=== PATIENT | female | born 1960 | race African-American/Black ===

== ENCOUNTER → 2017-03-21 07:00 | Outpatient (CLI) | payer MEDICAID | LOC: D.ECHO 07:00 → D.RT 11:00 | DX: R06.02 Shortness of breath (principal) ==

== ENCOUNTER → 2017-04-11 09:00 | Outpatient (CLI) | payer MEDICAID | END | disposition home or self-care (01) | LOC: D.CT 09:00 | DX: J98.4 Other disorders of lung (principal) ==

== ENCOUNTER → 2017-11-08 11:00 | Outpatient (CLI) | payer MEDICAID ==
--- NOTE | ~2017-11-08 | EC ---
PATIENT:ANISHA ZAFAR DATE OF SERVICE: 11/08/17 SEX: F MEDICAL RECORD: [id number] DATE OF : 56 LOCATION:D.RT AGE OF PATIENT: 57 ADMISSION DATE: 11/08/17 REFERRING PHYSICIAN: INTERPRETING PHYSICIAN: DANIEL GREWAL MD ECHOCARDIOGRAM REPORT ECHO CHARGES 4 ECHO COMPLETE Date: 11/08/17 CLINICAL DIAGNOSIS: DYSPNEA ECHOCARDIOGRAPHIC MEASUREMENTS (adult normal given) AC root (d.<3.7cm) 3.2 cm LV Septum d (<1.2 cm> 1.5 cm Valve Excursion 1.9 cm LV Septum (systole) 2.0 cm Left Atria (s.<4.0cm> 4.0 cm LVPW d(<1.2cm) 1.4 cm RV (d.<2.3cm) 2.3 cm LVPW (sytole) 2.0 cm LV diastole(<5.6CM) 4.9 cm MV E-F(>70mm/sec) cm LV systole 2.2 cm LVOT Diameter 2.0 cm MV exc.(>10mm) cm Est.ejection fraction (50-75%) % DOPPLER: LVIT cm/sec A 115 cm/sec E 100 cm/sec LA cm/sec RVSP 35.0 mmHg LVOT 113 cm/sec AOP1/2T m/s Asc. Ao 180 cm/sec RVOT 72.0 cm/sec RA cm/sec PA 101 cm/sec AV Gradient Peak 13.0 mmHg AV Mean 6.6 mmHg AV Area 2.0 cm MV Gradient Peak 6.4 mmHg MV Mean 3.0 mmHg MV Area cm COMMENTS: Inclusion Teacher: Cherelle MARTINOE Filer Repairer: 1 Dr. Grewal TAPE# PACS Pericardial Effusion N DATE OF SERVICE: 11/08/2017 DATE OF SERVICE: 11/08/2017 ECHOCARDIOGRAM FINDINGS: 1. Left ventricular chamber size is within normal limits. Left ventricular systolic function is normal. Overall ejection fraction is estimated at 60%. 2. Left atrium is upper limits of normal at 4.0 cm. Right atrium and right ECHOCARDIOGRAM REPORT [id number] ANISHA ZAFAR ventricular chamber sizes are within normal limits. 3. Valvular structures have normal structure and motion. 4. Doppler interrogation only reveals trace mitral regurgitation, trace tricuspid regurgitation, no other valvular insufficiency or stenosis. Pulmonary systolic pressure is normal estimated at 35 mmHg. 5. No evidence of pericardial effusion or left ventricular thrombus. TRANSINT:[id number] Voice Confirmation ID: [id number] DOCUMENT ID: [id number] DANIEL GREWAL MD at 0924 CC: [id number] DICTATION DATE: 11/08/17 1643 PERSONAL VEHICLE ADVISOR: 11/08/17 1827 DEP CLI 11/08/17 [facility] [address] [id number]
== END | disposition home or self-care (01) ==
LOC: D.RT 11:00
DX: R06.02 Shortness of breath (principal)

== ENCOUNTER → 2018-10-25 08:26 | Outpatient (CLI) | payer MEDICAID | END | disposition home or self-care (01) | LOC: D.RT 08-22 14:00 → D.ECHO 08-24 09:00 → D.RT 08-24 10:00 → D.ECHO 10-15 08:00 | PROVIDERS: ATTEND Internal Medicine Pulmonary Disease | DX: R06.02 Shortness of breath (principal) ==

== ENCOUNTER 2020-06-17 11:36 | Inpatient (IN) | payer MEDICAID ==
[~2020-06-17] VITALS: Ht 157.5 cm; Wt 137.9 kg
[2020-06-17 12:18] VITALS: BP 137/91
[2020-06-17 13:15] LABS: BASOPHILS 0.3 % (0-2); EOSINOPHILS 1.7 % (0-7); HEMATOCRIT 31.5 % (36.0-48.0); HEMOGLOBIN 9.8 g/dL (12-16); IMMATURE GRANULOCYTES 0.5 % (0-5); LYMPHOCYTE ABS# 1.96 10x3/uL (1.18-3.74); LYMPHOCYTES 18.7 % (15-50); MCH 26.7 pg (26.0-34.0); MCHC 31.1 g/dL (31.0-37.0); MCV 85.8 fL (80.0-100.0); MEAN PLATELET VOLUME 10.2 fL (7.4-10.4); MONOCYTES 5.4 % (2-11); NEUTROPHIL ABS# 7.68 10x3/uL (1.56-6.13); NEUTROPHILS 73.4 % (40-80); PLATELET COUNT 360 10x3/uL (130-400); RBC 3.67 10x6/uL (4.00-5.40); RDW 17.2 % (11.5-14.5); WBC 10.5 10x3/uL (4.8-10.8)
[2020-06-17 13:22] LABS: APTT 37.7 SECONDS (22.8-39.4); INR 1.84 (0.85-1.17); PROTIME 19.7 SECONDS (11.6-15.0)
[2020-06-17 13:25] LABS: D-DIMER-QUANTITATIVE 2.26 ug/mLFEU (0.20-0.54)
[2020-06-17 13:26] VITALS: BP 117/62
--- NOTE | 2020-06-17 13:30 | NUR ---
IV SITED IN LEFT FOREARM WITH 22G X 2 ATTEMPTS
[2020-06-17 13:40] LABS: CALC OSMOLALITY 299 mosm/kg (275-300); CALCIUM 8.9 mg/dL (8.5-10.1); CARBON DIOXIDE 24.7 mmol/L (21.0-32.0); CHLORIDE - SERUM 106 mmol/L (98-107); CREATININE - SERUM 3.1 mg/dL (0.6-1.3); GLUCOSE 134 mg/dL (74-106); POTASSIUM - SERUM 4.4 mmol/L (3.5-5.1); SODIUM 140 mmol/L (136-145); UREA NITROGEN 65 mg/dL (7-18); eGFR NON AFRICAN AMERICAN 16 mL/min (90-120)
[2020-06-17 13:58] LABS: ALBUMIN 2.7 g/dL (3.4-5.0); ALKALINE PHOSPHATASE 177 U/L (30-120); ALT (SGPT) 103 U/L (10-68); BILIRUBIN - TOTAL 0.41 mg/dL (0.2-1.3); CKMB 1.2 U/L (0.0-3.6); CREATINE KINASE 50 UL (21-215); PROTEIN - SERUM 7.7 g/dL (6.4-8.2); TROPONIN-I < 0.017 ng/mL (0.000-0.060)
[2020-06-17 14:27] VITALS: BP 115/62
[2020-06-17 15:28] VITALS: BP 111/54
[2020-06-17 16:28] VITALS: BP 116/59
--- NOTE | 2020-06-17 17:40 | NUR ---
REC'D TO ROOM [address]227 AT THIS TIME VIA W/C. AWAKE AND ALERT. RESP EVEN AND UNLABORED WITH NO DISTRESS NOTED. CAN EXPRESS NEEDS AND WANTS. NO C/O NOTED OR VOICED AT THIS TIME. UP AB LARS. ASSESSMENT COMPLETED. C/L IN REACH AT BEDSIDE.
[2020-06-17] MEDS ORDERED: ELIQUIS2.5 MG PO (17:41)
[2020-06-17] MEDS ORDERED: FEXOFENADINE H180 MG PO (17:42)
[2020-06-17] MEDS ORDERED: ZOLOFT50 MG PO (17:42)
[2020-06-17] MEDS ORDERED: PLAVIX75 MG PO (17:44)
[2020-06-17] MEDS ORDERED: GLIPIZIDE5 MG PO (17:45)
[2020-06-17] MEDS ORDERED: METOPROLOL TART50 MG PO (17:45)
[2020-06-17] MEDS ORDERED: PROTONIX40 MG PO (17:46)
[2020-06-17] MEDS ORDERED: LASIX20 MG PO (17:46)
[2020-06-17] MEDS ORDERED: LIPITOR10 MG PO (17:47)
[2020-06-17] MEDS ORDERED: FLUTICASONE PRO16 GM NASAL (17:50)
[2020-06-17] MEDS ORDERED: LANTUS SOL100 UNIT/2 SC (17:52)
[2020-06-17 20:00] VITALS: BP 130/62
--- NOTE | 2020-06-17 23:33 | NUR ---
PT IN BED AT THIS TIME. ALERT AND ORIENTED. WEARING O2 AT 2L VIA NASAL CANULA. ABLE TO MAKE WANTS AND NEEDS KNOWN CLEARLY. PT STATES SHE WEARS A CPAP AT HOME BUT DOES NOT HAVE IT WITH HER. BED IN LOWEST POSITION WITH CALL LIGHT IN REACH.
[2020-06-18] VITALS: BP 143/85
[2020-06-18 04:00] VITALS: BP 134/44
[2020-06-18 06:57] LABS: ALBUMIN 2.6 g/dL (3.4-5.0); ANION GAP 14.5 mmol/L (8-16); BILIRUBIN - TOTAL 0.41 mg/dL (0.2-1.3); CALCIUM 8.8 mg/dL (8.5-10.1); CARBON DIOXIDE 23.7 mmol/L (21.0-32.0); CREATININE - SERUM 2.9 mg/dL (0.6-1.3); POTASSIUM - SERUM 4.2 mmol/L (3.5-5.1); PROTEIN - SERUM 7.7 g/dL (6.4-8.2)
[2020-06-18 07:02] LABS: BASOPHILS 0.1 % (0-2); EOSINOPHILS 2.4 % (0-7); HEMATOCRIT 30.8 % (36.0-48.0); HEMOGLOBIN 9.5 g/dL (12-16); IMMATURE GRANULOCYTES 0.1 % (0-5); LYMPHOCYTE ABS# 2.22 10x3/uL (1.18-3.74); LYMPHOCYTES 22.9 % (15-50); MCH 26.7 pg (26.0-34.0); MCHC 30.8 g/dL (31.0-37.0); MCV 86.5 fL (80.0-100.0); MEAN PLATELET VOLUME 10.3 fL (7.4-10.4); MONOCYTES 5.7 % (2-11); NEUTROPHIL ABS# 6.66 10x3/uL (1.56-6.13); NEUTROPHILS 68.8 % (40-80); PLATELET COUNT 370 10x3/uL (130-400); RBC 3.56 10x6/uL (4.00-5.40); WBC 9.7 10x3/uL (4.8-10.8)
[2020-06-18 07:40] VITALS: BMI 55.7
[2020-06-18 09:34] VITALS: BP 132/52
[2020-06-18 12:06] VITALS: Ht 157.5 cm; Wt 137.9 kg
[2020-06-18 13:44] VITALS: BP 141/61
[2020-06-18 16:23] VITALS: BP 136/43
--- NOTE | 2020-06-18 18:03 | NUR ---
PT REMAINS SOB WHEN AMBULATING TO BATHROOM. BSC BROUGHT TO ROOM AND PT STATES IT WAS NOT HARD TO BREATHE USING IT. UNABLE TO OBTAIN URINE SPECIMEN DUE TO STOOL IN [place] HAT AND THEN WIPES IN [place] HAT. CALL LIGHT IN REACH.
[2020-06-18 20:00] VITALS: BP 138/44
[2020-06-18 20:02] LABS: BILIRUBIN NEGATIVE (NEGATIVE); KETONE NEGATIVE (NEGATIVE); NITRITE NEGATIVE (NEGATIVE); UROBILINOGEN NORMAL mg/dL (< 2)
[2020-06-18 20:07] LABS: BACTERIA FEW HPF (NONE SEEN); WHITE CELLS - URINE 0-5 HPF (0-4)
[2020-06-18 20:12] LABS: CREATININE - URINE 30.9 mg/dL (30-125); PRO/CRE RATIO URINE 1.6 mg/g; PROTEIN - URINE 50.4 mg/dL (0.0-11.9)
--- NOTE | 2020-06-18 23:33 | NUR ---
PT IN BED RESTING. ALERT AND ORIENTED. WEARING O2 AT 2L NASAL CANULA. PT GETS SHORT OF BREATH WITH EXERTION. SCDS ON. ABLE TO MAKE WANTS AND NEEDS KNOWN TO STAFF. USES BEDSIDE COMMODE X1 ASSIST. BED IN LOWEST POSITION WITH CALL LIGHT IN REACH.
[2020-06-19] VITALS: BP 113/47
[2020-06-19 04:00] VITALS: BP 128/79
[2020-06-19 05:37] LABS: BASOPHILS 0.1 % (0-2); EOSINOPHILS 2.5 % (0-7); HEMATOCRIT 30.1 % (36.0-48.0); HEMOGLOBIN 9.1 g/dL (12-16); IMMATURE GRANULOCYTES 0.2 % (0-5); LYMPHOCYTE ABS# 2.07 10x3/uL (1.18-3.74); LYMPHOCYTES 21.4 % (15-50); MCHC 30.2 g/dL (31.0-37.0); MEAN PLATELET VOLUME 10.4 fL (7.4-10.4); MONOCYTES 5.4 % (2-11); NEUTROPHIL ABS# 6.83 10x3/uL (1.56-6.13); NEUTROPHILS 70.4 % (40-80); PLATELET COUNT 349 10x3/uL (130-400); RDW 16.9 % (11.5-14.5); WBC 9.7 10x3/uL (4.8-10.8)
[2020-06-19 05:53] LABS: ALBUMIN 2.4 g/dL (3.4-5.0); ANION GAP 15.6 mmol/L (8-16); BILIRUBIN - TOTAL 0.39 mg/dL (0.2-1.3); CALCIUM 8.5 mg/dL (8.5-10.1); CARBON DIOXIDE 23.4 mmol/L (21.0-32.0); CREATININE - SERUM 2.9 mg/dL (0.6-1.3); PROTEIN - SERUM 7.4 g/dL (6.4-8.2)
--- NOTE | 2020-06-19 07:30 | NUR ---
REC'D IN BED AWAKE AND ALERT TO NAME ONLY WITH NOTED CONFUSION. RESP EVEN AND UNLABORED WITH NO DISTRESS NOTED. CAN EXPRESS NEEDS AND WANTS. ASSESSMENT COMPLETED. C/L IN REACH AT BEDSIDE.
[2020-06-19 08:52] VITALS: BP 142/77
--- NOTE | 2020-06-19 11:17 | NUR ---
I have reviewed this patient and I concur with the Shift Assessment completed by the Licensed Practical Nurse today this shift.
[2020-06-19 12:29] VITALS: BP 171/73
[2020-06-19 12:48] LABS: % SATURATION 11 % (15-55); IRON 30 ug/dl (35-150); TOTAL IRON BIND CAPACITY 270 ug/dl (260-445); UNSAT IRON BIND CAPACITY 240 ug/dl (150-375)
[2020-06-19 17:12] VITALS: BP 141/77
[2020-06-19 20:00] VITALS: BP 142/47
[2020-06-20 04:58] LABS: BASOPHILS 0.1 % (0-2); EOSINOPHILS 1.8 % (0-7); HEMATOCRIT 30.1 % (36.0-48.0); HEMOGLOBIN 9.1 g/dL (12-16); IMMATURE GRANULOCYTES 0.3 % (0-5); LYMPHOCYTE ABS# 2.12 10x3/uL (1.18-3.74); MCH 26.3 pg (26.0-34.0); MCHC 30.2 g/dL (31.0-37.0); MEAN PLATELET VOLUME 10.2 fL (7.4-10.4); MONOCYTES 6.4 % (2-11); NEUTROPHIL ABS# 7.11 10x3/uL (1.56-6.13); NEUTROPHILS 70.4 % (40-80); PLATELET COUNT 341 10x3/uL (130-400); RBC 3.46 10x6/uL (4.00-5.40); WBC 10.1 10x3/uL (4.8-10.8)
[2020-06-20 05:16] LABS: ALBUMIN 2.5 g/dL (3.4-5.0); BILIRUBIN - TOTAL 0.36 mg/dL (0.2-1.3); CALCIUM 8.8 mg/dL (8.5-10.1); CARBON DIOXIDE 24.3 mmol/L (21.0-32.0); CREATININE - SERUM 2.9 mg/dL (0.6-1.3); POTASSIUM - SERUM 4.3 mmol/L (3.5-5.1); PROTEIN - SERUM 7.2 g/dL (6.4-8.2)
[2020-06-20 05:48] VITALS: BP 142/47
[2020-06-20 05:54] VITALS: BP 119/54
--- NOTE | 2020-06-20 07:20 | NUR ---
REC'D IN BED WITH EYES CLOSED EASILY TO AROUSED WHEN NAME IS CALLED. RESP EVEN AND UNLABORED WITH NO DISTRESS NOTED. TURN AND REPOSITION SELF AB LARS. STAND BY ASSISTANCE WITH ALL TRANSFERS. ASSESSMENT COMPLETED. C/L IN REACH AT BEDSIDE.
[2020-06-20 08:27] VITALS: BP 117/60
[2020-06-20 12:43] VITALS: BP 96/75
--- NOTE | 2020-06-20 17:22 | NUR ---
I have reviewed this patient and I concur with the Shift Assessment completed by the Licensed Practical Nurse today this shift.
[2020-06-20 17:23] VITALS: BP 123/50
[2020-06-20 20:00] VITALS: BP 127/91
--- NOTE | 2020-06-20 21:00 | NUR ---
20 G IV RESITED TO RIGHT FOREARM BY ANDREW GUTIÉRREZ. RESUMED IRON INFUSION. NO OTHER NEEDS. ASSESSMENT PER FLOWSHEET. WILL CONTINUE TO MONITOR.
[2020-06-21 05:32] LABS: BASOPHILS 0.1 % (0-2); EOSINOPHILS 2.4 % (0-7); HEMATOCRIT 31.3 % (36.0-48.0); HEMOGLOBIN 9.3 g/dL (12-16); IMMATURE GRANULOCYTES 0.2 % (0-5); LYMPHOCYTE ABS# 1.79 10x3/uL (1.18-3.74); LYMPHOCYTES 17.6 % (15-50); MCH 25.9 pg (26.0-34.0); MCHC 29.7 g/dL (31.0-37.0); MCV 87.2 fL (80.0-100.0); MEAN PLATELET VOLUME 10.5 fL (7.4-10.4); MONOCYTES 6.5 % (2-11); NEUTROPHIL ABS# 7.47 10x3/uL (1.56-6.13); NEUTROPHILS 73.2 % (40-80); PLATELET COUNT 331 10x3/uL (130-400); RBC 3.59 10x6/uL (4.00-5.40); RDW 17.1 % (11.5-14.5); WBC 10.2 10x3/uL (4.8-10.8)
[2020-06-21 06:08] LABS: ALBUMIN 2.6 g/dL (3.4-5.0); ANION GAP 11.7 mmol/L (8-16); BILIRUBIN - TOTAL 0.31 mg/dL (0.2-1.3); CALCIUM 8.7 mg/dL (8.5-10.1); CARBON DIOXIDE 26.8 mmol/L (21.0-32.0); CREATININE - SERUM 2.9 mg/dL (0.6-1.3); POTASSIUM - SERUM 4.5 mmol/L (3.5-5.1)
[2020-06-21 07:00] VITALS: BP 153/64
[2020-06-21 12:34] VITALS: BP 134/68
[2020-06-22 06:50] LABS: ALBUMIN 2.7 g/dL (3.4-5.0); ANION GAP 13.7 mmol/L (8-16); BILIRUBIN - TOTAL 0.57 mg/dL (0.2-1.3); CARBON DIOXIDE 24.1 mmol/L (21.0-32.0); PROTEIN - SERUM 7.3 g/dL (6.4-8.2)
[2020-06-22 06:55] LABS: CREATININE - SERUM 2.1 mg/dL (0.6-1.3); POTASSIUM - SERUM 3.8 mmol/L (3.5-5.1)
[2020-06-22 07:08] LABS: BASOPHILS 0.1 % (0-2); EOSINOPHILS 2.8 % (0-7); HEMATOCRIT 32.3 % (36.0-48.0); HEMOGLOBIN 9.8 g/dL (12-16); IMMATURE GRANULOCYTES 0.2 % (0-5); LYMPHOCYTE ABS# 1.74 10x3/uL (1.18-3.74); LYMPHOCYTES 19.6 % (15-50); MCH 26.1 pg (26.0-34.0); MCHC 30.3 g/dL (31.0-37.0); MCV 85.9 fL (80.0-100.0); MEAN PLATELET VOLUME 10.5 fL (7.4-10.4); MONOCYTES 8.1 % (2-11); NEUTROPHIL ABS# 6.12 10x3/uL (1.56-6.13); NEUTROPHILS 69.2 % (40-80); PLATELET COUNT 301 10x3/uL (130-400); RBC 3.76 10x6/uL (4.00-5.40); RDW 17.2 % (11.5-14.5); WBC 8.9 10x3/uL (4.8-10.8)
--- NOTE | 2020-06-22 08:29 | NUR ---
EKG LEADS ADJUSTED. REMOVED FROM CPAP AND PUT ON 3LNC. C/O ITCHING, GIVING BENADRYL.
[2020-06-22 10:18] VITALS: BP 133/48
[2020-06-22 14:00] VITALS: BP 114/63
--- NOTE | 2020-06-22 15:39 | NUR ---
FAMILY CALLED, UPDATED.
[2020-06-22 17:54] VITALS: BP 169/83
--- NOTE | 2020-06-22 18:04 | NUR ---
GI LAB STAFF HERE TO GET PT.
--- NOTE | 2020-06-22 18:06 | NUR ---
NOTIFIED DAUGHTER THAT SHE HAS BEEN TAKEN BACK TO GI LAB.
--- NOTE | 2020-06-22 19:15 | NUR ---
BACK FROM GI LAB, ALERT VVS, DENIES PAIN OR NEEDS AT THIS TIME, TELEMENTRY REPLACED, SEE SHIFT ASSESSMENT, CALL LIGHT IN PLACE
[2020-06-22 19:39] VITALS: BP 165/73
[2020-06-23] VITALS: BP 135/84
[2020-06-23 04:00] VITALS: BP 134/67
[2020-06-23 06:57] LABS: BASOPHILS 0.5 % (0-2); EOSINOPHILS 2.5 % (0-7); HEMATOCRIT 30.5 % (36.0-48.0); LYMPHOCYTES 19.2 % (15-50); MCH 27.7 pg (26.0-34.0); MCHC 32.7 g/dL (31.0-37.0); MCV 84.7 fL (80.0-100.0); MEAN PLATELET VOLUME 8.1 fL (7.4-10.4); MONOCYTES 6.1 % (2-11); NEUTROPHILS 71.7 % (40-80); PLATELET COUNT 268 10x3/uL (130-400); WBC 8.6 10x3/uL (4.8-10.8)
[2020-06-23 07:53] LABS: ALBUMIN 2.6 g/dL (3.4-5.0); ANION GAP 15.6 mmol/L (8-16); BILIRUBIN - TOTAL 0.62 mg/dL (0.2-1.3); CARBON DIOXIDE 23.5 mmol/L (21.0-32.0); POTASSIUM - SERUM 4.1 mmol/L (3.5-5.1); PROTEIN - SERUM 6.7 g/dL (6.4-8.2)
[2020-06-23 10:02] VITALS: BP 143/80
--- NOTE | 2020-06-23 12:48 | NUR ---
Nutrition follow-up: Pt resting with CPAP in place s/p EGD with colonscopy; both normal per GI Diet advancing as tolerated labs reviewed; still with renal issues Wt: 303# Will provide food choices with selective menus and encourage po intake Will offer nutritional supplements. RDN will follow-up: 06/26/20
[2020-06-23 14:48] VITALS: BP 129/65
[2020-06-23 17:21] VITALS: BP 158/71
--- NOTE | 2020-06-23 19:15 | NUR ---
WALKING REPORT DONE. EXPLAINED TO PT THAT I WOULD BE BACK TO DO HER ASSESSMENT AND GIVE MEDS
[2020-06-23 20:00] VITALS: BP 129/63
--- NOTE | 2020-06-23 21:00 | NUR ---
IN PT ROOM AND ASSESSMENT COMPLETED. MEDS ALSO GIVEN. PT HAS NO C/O AT THIS TIME. SHE CONT TO BE ON A [facility]. SOFT DIET. SHE IS WEARING O2 AT 2L/NC. SHE IS WEARING SCD. SHE IS ON TELE WITH [employer]. RATE IN THE 90'S. SHE GETS UP IN HER ROOM BUT THAT IS ALL. HER BS IS 176 AND SHE RECIEVED 2 UNITS OF INSULIN. PT HAS A BSC BESIDE HER BED BUT SHE DOES GO INTO THE BR SOME.
--- NOTE | 2020-06-23 22:20 | NUR ---
PT C/O OF HER SKIN ITCHING. SHE REQUESTED A BENADRYL. 25 MG BENADRYL WAS GIVEN PO.
--- NOTE | 2020-06-23 23:00 | NUR ---
PT IS NOW ON HER BIPAP. SHE HAS NO PROBLEMS OR C/O.
[2020-06-24] VITALS: BP 161/63
--- NOTE | 2020-06-24 02:40 | NUR ---
PT C/O ITCHING AGAIN. SHE WAS GIVEN ANOTHER BENADRYL 25 MG.
--- NOTE | 2020-06-24 03:00 | NUR ---
PT IS RESTING QUIETLY IN HER ROOM WITHOUT C/O OR NEEDS
[2020-06-24 04:00] VITALS: BP 149/77
--- NOTE | 2020-06-24 05:53 | NUR ---
BS 114. NO INSULIN REQUIED. PT WAS ASLEEP AND ON HER BIPAP WHEN I HAD TO WAKE HER UP.
--- NOTE | 2020-06-24 06:10 | NUR ---
PT BS WAS 114. NO INSULIN REQUIRED. SHE IS RESTING WELL WITH HER BIPAP IN PLACE.
--- NOTE | 2020-06-24 06:27 | NUR ---
PER COFFEE SHOP AIDE PT IS SINUS RHYTHM RATE 74.
[2020-06-24 07:38] LABS: HEMATOCRIT 30.2 % (36.0-48.0); HEMOGLOBIN 9.6 g/dL (12-16); LYMPHOCYTES 14.8 % (15-50); MCH 26.8 pg (26.0-34.0); MCHC 31.8 g/dL (31.0-37.0); MCV 84.1 fL (80.0-100.0); MEAN PLATELET VOLUME 7.7 fL (7.4-10.4); MONOCYTES 5.4 % (2-11); NEUTROPHILS 76.8 % (40-80); PLATELET COUNT 246 10x3/uL (130-400); RBC 3.59 10x6/uL (4.00-5.40); RDW 18.3 % (11.5-14.5); WBC 10.7 10x3/uL (4.8-10.8)
[2020-06-24 08:04] LABS: ALBUMIN 2.7 g/dL (3.4-5.0); ANION GAP 13.5 mmol/L (8-16); BILIRUBIN - TOTAL 0.54 mg/dL (0.2-1.3); CALCIUM 8.8 mg/dL (8.5-10.1); CARBON DIOXIDE 24.6 mmol/L (21.0-32.0); CREATININE - SERUM 2.2 mg/dL (0.6-1.3); MAGNESIUM - SERUM 1.8 mg/dL (1.8-2.4); PHOSPHOROUS 3.4 mg/dL (2.5-4.9); POTASSIUM - SERUM 4.1 mmol/L (3.5-5.1); PROTEIN - SERUM 6.8 g/dL (6.4-8.2)
--- NOTE | 2020-06-24 08:06 | NUR ---
PT. RECEIVED RESTING IN BED, SWITCHED FROM BIPAP TO 2L O2 NC ON HER OWN. SCDS ON, NON SKID SOCKS ON. PT. ALERT AND ORIENTED. NO PAIN OR NEEDS VOICED. IV INTACT TO R. FA. SALINE LOCKED. CL IN REACH, SR UP X2.
[2020-06-24 08:39] VITALS: BP 140/86
[2020-06-24 12:34] VITALS: BP 150/87
--- NOTE | 2020-06-24 12:46 | MORECARE ---
CASE MANAGEMENT DISCHARGE SUMMARY PATIENT: ANISHA ZAFAR UNIT: [id number] ADM DATE: 06/18/20 AGE: 59 : 56 SEX: F ROOM/BED: D.2203 AUTHOR: NANADOC PHYSICIAN: REFERRING PHYSICIAN: STEPHANIE GALLO MD DATE OF SERVICE: 06/24/20 Case Management Discharge Planning Summary DCP REVIEW SUMMARY ANTICIPATED D/C DATE: EXPECTED LOS : CASE STATUS: DCP Initiated INITIAL REVIEW: 06/17/2020 INITIAL REVIEWER: Tami Kaba FINAL DISCHARGE DISPOSITION: 01 : Home or Self Care (Routine Discharge) FINAL REVIEWER: FINAL REVIEW DATE: DCP Focus Questions & Answers DCP Screen QUESTION: ANSWER High Risk Factors: : Hosp related to CHF, COPD, DM, End Stage Ds, CVA, CA DCP Evaluation QUESTION: ANSWER Patient's ability to cope with chronic illness : d. No chronic illness Physical Status: : Partial care dependence Physical Status: : Mobility impaired Partial Dependence, assistance required for: : Ambulation / Mobility Baseline cognitive status: : *Oriented to person, place, situation, time and present Would patient like to participate in any Care Coordination programs (if applicable): : Not applicable Mental health screen: : No mental health history DCP Re-evaluation QUESTION: ANSWER Would patient like to participate in any Care Coordination programs (if applicable): : Not applicable PATIENT: ANISHA ZAFAR ENCOUNTER: [id number] MEDICAL RECORD#: [id number] ADMISSION DATE: 06/18/2020 DISCHARGE DATE: ATTENDING MD: STEPHANIE JAMES : AGE: 59 MARITAL STATUS: S DC PLAN ID: [id number] FACILITY: [facility] PRINTED ON: 06/24/20 12:45 CT All edits/amendments must be made on the electronic document DICTATION DATE: 06/24/20 124 TUBE DISPATCHER: TUAN 06/24/20 124 RPT#: [id number] DC DATE: STATUS: ADM IN [facility] [address] [place] [address] END OF REPORT
--- NOTE | 2020-06-24 12:59 | MORECARE ---
CASE MANAGEMENT DISCHARGE SUMMARY PATIENT: ANISHA ZAFAR UNIT: [id number] ADM DATE: 06/18/20 AGE: 59 : 56 SEX: F ROOM/BED: D.2203 AUTHOR: ANNA,DOC PHYSICIAN: REFERRING PHYSICIAN: STEPHANIE GALLO MD DATE OF SERVICE: 06/24/20 Case Management Discharge Planning Summary COMMENTS ENTERED DATE: 06/24/20 12:50 CT COMMENT TYPE: Discharge Planning REVIEWER: Tami Kaba CM met with patient to complete initial dc planning assessment. CM educated patient on the CM role and verbal consent given by patient to complete assessment. Patient lives at home with her adult son and grandson where she is mainly independent with her care. At discharge patient plans to return home and feels this is a safe discharge. Her daughter will be her driver/refuse collector home. CM discussed availability of home health, rehab services, and medical equipment. She did not feel like she needed home health. She said that she has everything she needs when she gets to go home. She has a walker, wheelchair, BSC, glucometer, triliogy ( [employer]) home O2 portable and concentrator. ( she gets it from a DME in [place]) nebulizer, glucometer. She stated her daughter is her billet grinder at home. Patient denied known discharge needs at this time. CM will continue to follow and will assist as needed with dc plans/needs. DCP REVIEW SUMMARY ANTICIPATED D/C DATE: EXPECTED LOS : CASE STATUS: DCP Initiated INITIAL REVIEW: 06/17/2020 INITIAL REVIEWER: Tami Kaba FINAL DISCHARGE DISPOSITION: 01 : Home or Self Care (Routine Discharge) FINAL REVIEWER: FINAL REVIEW DATE: DCP Focus Questions & Answers DCP Screen QUESTION: ANSWER High Risk Factors: : Hosp related to CHF, COPD, DM, End Stage Ds, CVA, CA DCP Evaluation QUESTION: ANSWER Patient's ability to cope with chronic illness : d. No chronic illness Patient and/or caregiver agree upon recommended discharge plan? : Yes Family / Caregiver's ability to cope with chronic illness: : a. Adequate (ability to meet patient's medical needs, ensures patient attends medical appts.) Patient's current cognitive status: : *Oriented to person, place, situation, time and present Physical Status: : Partial care dependence Physical Status: : Mobility impaired Does the patient have the ability to pay for or attain post discharge needs / services? : Yes Functional screen assessment: : Can meet basic needs but may require referral for resources Family / Caregiver's ability to cope with chronic illness: : a. Adequate (ability to meet patient's medical needs, ensures patient attends medical appts.) Partial Dependence, assistance required for: : Ambulation / Mobility Is there a likelihood that the patient will require additional services to return to the preadmission environment? : No Living Arrangements: : Home with Extended Family Baseline cognitive status: : *Oriented to person, place, situation, time and present Other Equipment comments: : DENIES ANY NEEDS Results of this evaluation have been discussed with: : Patient Patient with capacity for self-care or can be cared for in same environment as prior to hospitalization? : Yes Living arrangements comments: : LIVES WITH HER SON AND GRANDSON Medication Management: : Patient states can read and understand medication labels Medication Management: : Patient states can afford medications Pharmacy name(s): : [facility] Does Patient have transportation to get home and to follow-up medical appointments when discharged from the hospital? : Yes Would patient like to participate in any Care Coordination programs (if applicable): : Not applicable Comments: : DAUGHTER WILL BE HER FREIGHT CAR REPAIRER HOME Does the patient have electricity at home? : Yes Does the patient have running water in their house? : Yes Equipment in use: : Wheelchair Equipment in use: : Walker - Rolling Equipment in use: : Ventilator (home) Equipment in use: : Shower Chair Equipment in use: : Other Equipment in use: : Nebulizer Equipment in use: : Home Oxygen with Nasal Cannula Equipment in use: : Glucometer Equipment in use: : Bedside Commode Mental health screen: : No mental health history Psychosocial status: : Adult with physical limitations Abuse/Neglect: : None Resources / Services in place: : [facility] agency on aging Contact information for resources in use: : DAUGHTER IS HER [employer]OT DCP Re-evaluation QUESTION: ANSWER Would patient like to participate in any Care Coordination programs (if applicable): : Not applicable PATIENT: ANISHA ZAFAR ENCOUNTER: [id number] MEDICAL RECORD#: [id number] ADMISSION DATE: 06/18/2020 DISCHARGE DATE: ATTENDING MD: STEPHANIE JAMES : AGE: 59 MARITAL STATUS: S DC PLAN ID: [id number] FACILITY: [facility] PRINTED ON: 06/24/20 12:59 CT All edits/amendments must be made on the electronic document DICTATION DATE: 06/24/201258 BAND NAILER: TUAN 06/24/201258 RPT#: [id number] DC DATE: STATUS: ADM IN [facility] [address] [place] [address] END OF REPORT
[2020-06-24 14:11] LABS: PLATELET ESTIMATE NORMAL
[2020-06-24 14:12] LABS: ROULEAUX OCC
[2020-06-24 15:20] LABS: % SATURATION 13 % (15-55); IRON 33 ug/dl (35-150); TOTAL IRON BIND CAPACITY 242 ug/dl (260-445); UNSAT IRON BIND CAPACITY 209 ug/dl (150-375)
--- NOTE | 2020-06-24 16:49 | NUR ---
PT DISCHARGE INSTRUCTIONS READ AND VERBALIZED UNDERSTANDING. IV REMOVED. PT WAITING FOR DTR TO PICK HER UP WITH HOME 02 PORTABLE TANK, WILL NOT BE HERE UNTIL 193. TELE MONITOR TO BE REMOVED ONCE PT IS READY FOR PICKUP.
--- NOTE | 2020-06-24 16:52 | NUR ---
PT REFUSES FSBS AT THIS TIME SINCE SHE IS GOING HOME LATER.
--- NOTE | 2020-06-24 21:32 | NUR ---
PT ESCORTED TO ER ENTRANCE VIA WHEELCHAIR.
--- NOTE | 2020-06-25 10:11 | MORECARE ---
CASE MANAGEMENT DISCHARGE SUMMARY PATIENT: ANISHA ZAFAR UNIT: [id number] ADM DATE: 06/18/20 AGE: 59 : 56 SEX: F ROOM/BED: D.2203 AUTHOR: ANNA,DOC PHYSICIAN: REFERRING PHYSICIAN: STEPHANIE GALLO MD DATE OF SERVICE: 06/25/20 Case Management Discharge Planning Summary COMMENTS ENTERED DATE: 06/24/20 12:50 CT COMMENT TYPE: Discharge Planning REVIEWER: Tami Kaba CM met with patient to complete initial dc planning assessment. CM educated patient on the CM role and verbal consent given by patient to complete assessment. Patient lives at home with her adult son and grandson where she is mainly independent with her care. At discharge patient plans to return home and feels this is a safe discharge. Her daughter will be her uke driver home. CM discussed availability of home health, rehab services, and medical equipment. She did not feel like she needed home health. She said that she has everything she needs when she gets to go home. She has a walker, wheelchair, BSC, glucometer, triliogy ( [employer]) home O2 portable and concentrator. ( she gets it from a DME in [place]) nebulizer, glucometer. She stated her daughter is her instructional systems designer at home. Patient denied known discharge needs at this time. CM will continue to follow and will assist as needed with dc plans/needs. DCP REVIEW SUMMARY ANTICIPATED D/C DATE: EXPECTED LOS : 0 CASE STATUS: DCP Complete INITIAL REVIEW: 06/17/2020 INITIAL REVIEWER: Tami Kaba FINAL DISCHARGE DISPOSITION: 01 : Home or Self Care (Routine Discharge) FINAL REVIEWER: Tami Kaba FINAL REVIEW DATE: 06/25/2020 DCP Focus Questions & Answers DCP Screen QUESTION: ANSWER High Risk Factors: : Hosp related to CHF, COPD, DM, End Stage Ds, CVA, CA DCP Evaluation QUESTION: ANSWER Patient's ability to cope with chronic illness : d. No chronic illness Patient and/or caregiver agree upon recommended discharge plan? : Yes Family / Caregiver's ability to cope with chronic illness: : a. Adequate (ability to meet patient's medical needs, ensures patient attends medical appts.) Patient's current cognitive status: : *Oriented to person, place, situation, time and present Physical Status: : Partial care dependence Physical Status: : Mobility impaired Does the patient have the ability to pay for or attain post discharge needs / services? : Yes Functional screen assessment: : Can meet basic needs but may require referral for resources Family / Caregiver's ability to cope with chronic illness: : a. Adequate (ability to meet patient's medical needs, ensures patient attends medical appts.) Partial Dependence, assistance required for: : Ambulation / Mobility Is there a likelihood that the patient will require additional services to return to the preadmission environment? : No Living Arrangements: : Home with Extended Family Baseline cognitive status: : *Oriented to person, place, situation, time and present Other Equipment comments: : DENIES ANY NEEDS Results of this evaluation have been discussed with: : Patient Patient with capacity for self-care or can be cared for in same environment as prior to hospitalization? : Yes Living arrangements comments: : LIVES WITH HER SON AND GRANDSON Medication Management: : Patient states can read and understand medication labels Medication Management: : Patient states can afford medications Pharmacy name(s): : [facility] Does Patient have transportation to get home and to follow-up medical appointments when discharged from the hospital? : Yes Would patient like to participate in any Care Coordination programs (if applicable): : Not applicable Comments: : DAUGHTER WILL BE HER CYBER INCIDENT ANALYST HOME Does the patient have electricity at home? : Yes Does the patient have running water in their house? : Yes Equipment in use: : Wheelchair Equipment in use: : Walker - Rolling Equipment in use: : Ventilator (home) Equipment in use: : Shower Chair Equipment in use: : Other Equipment in use: : Nebulizer Equipment in use: : Home Oxygen with Nasal Cannula Equipment in use: : Glucometer Equipment in use: : Bedside Commode Mental health screen: : No mental health history Psychosocial status: : Adult with physical limitations Abuse/Neglect: : None Resources / Services in place: : [facility] agency on aging Contact information for resources in use: : DAUGHTER IS HER DRAPERY EXAMINER [facility] Re-evaluation QUESTION: ANSWER Would patient like to participate in any Care Coordination programs (if applicable): : Not applicable PATIENT: ANISHA ZAFAR ENCOUNTER: [id number] MEDICAL RECORD#: [id number] ADMISSION DATE: 06/18/2020 DISCHARGE DATE: 06/24/2020 ATTENDING MD: STEPHANIE JAMES : AGE: 59 MARITAL STATUS: S DC PLAN ID: [id number] FACILITY: [facility] PRINTED ON: 06/25/20 10:11 CT All edits/amendments must be made on the electronic document DICTATION DATE: 06/25/20 1010 LITHOGRAPHIC PROOFER: TUAN 06/25/20 1010 RPT#: [id number] DC DATE:06/24/20 STATUS: DIS IN [facility] [address] [place] [address] END OF REPORT
== END 2020-06-24 21:35 | disposition home or self-care (01) | DRG 292 ==
LOC: D.ER 11:36 → D.MS 16:35 → OBSVTIME 16:38 → D.MS 06-18 15:10
PROVIDERS: Emergency Medicine; Family Medicine; Internal Medicine; Surgery; ADMIT Legal Medicine; ATTEND Legal Medicine
PROC: 0DJD8ZZ Inspection of Lower Intestinal Tract, Via Natural or Artificial Opening Endoscopic (ICD-10-PCS; 2020-06-22)
PROC: 0DJ08ZZ Inspection of Upper Intestinal Tract, Via Natural or Artificial Opening Endoscopic (ICD-10-PCS; principal; 2020-06-22 11:00)
DX: I13.0 Hypertensive heart and chronic kidney disease with heart failure and stage 1 through stage 4 chronic kidney disease, or unspecified chronic kidney disease (principal); N17.9 Acute kidney failure, unspecified; Z68.43 Body mass index [BMI] 50.0-59.9, adult; E11.22 Type 2 diabetes mellitus with diabetic chronic kidney disease; N18.9 Chronic kidney disease, unspecified; I50.9 Heart failure, unspecified; D64.9 Anemia, unspecified; R06.00 Dyspnea, unspecified; E66.01 Morbid (severe) obesity due to excess calories; E11.21 Type 2 diabetes mellitus with diabetic nephropathy; R00.1 Bradycardia, unspecified; K21.9 Gastro-esophageal reflux disease without esophagitis; J43.9 Emphysema, unspecified